=== PATIENT | female | born 1965 | race American Indian/Alaskan Native ===

== ENCOUNTER 2017-04-09 07:46 | Emergency (ER) | payer BC ==
[2017-04-09 07:46] VITALS: BMI 33.8
[2017-04-09 08:00] VITALS: RESP 18; TEMP 98.7
[2017-04-09] MEDS ORDERED: Sodium Chloride 0.9% 1,000 ML IV ONE (08:15)
[2017-04-09] MEDS ORDERED: Sodium Chloride 0.9% 1,000 ML ONE (08:33)
[2017-04-09 08:36] LABS: BASO % 0.5 % (0.0-2.0); EOS # 0.1 K/uL (0.0-0.7); EOS % 2.7 % (0.0-4.0); HEMOGLOBIN 12.3 g/dL (11.0-16.0); LYMPH # 2.4 K/uL (1.0-4.3); LYMPH % 45.5 % (20.0-40.0); MEAN CELL VOLUME 78.4 fL (81.0-99.0); MEAN CORPUSCULAR HEMOGLOBIN 25.6 pg (27.0-31.0); MEAN CORPUSCULAR HGB CONC 32.6 g/dL (33.0-37.0); MEAN PLATELET VOLUME 9.2 fL (7.2-11.7); MONO # 0.6 K/uL (0.0-0.8); MONO % 11.5 % (0.0-10.0); NEUT # 2.1 K/uL (1.8-7.0); NEUT % 39.8 % (50.0-75.0); NRBC % 0.1 % (0.0-2.0); RBC 4.79 Mil/uL (3.80-5.20); RED CELL DISTRIBUTION WIDTH 14.1 % (11.5-14.5); WHITE BLOOD COUNT 5.4 K/uL (4.8-10.8)
[2017-04-09 08:40] LABS: SQUAMOUS EPITHIAL < 1 /hpf (0-5); URINE BILIRUBIN NEGATIVE (NEGATIVE); URINE BLOOD 1+ (NEGATIVE); URINE CLARITY Clear (Clear); URINE COLOR Yellow (YELLOW); URINE GLUCOSE (UA) NORMAL (Normal); URINE LEUKOCYTE ESTERASE NEG Leu/uL (Negative); URINE NITRATE NEGATIVE (NEGATIVE); URINE PROTEIN NEGATIVE (NEGATIVE); URINE UROBILINOGEN NORMAL mg/dL (0.2-1.0)
[2017-04-09 08:50] LABS: ALB/GLOB RATIO 1.1 (1.0-2.1); ALBUMIN 4.2 g/dL (3.5-5.0); ALT/SGPT 18 U/L (9-52); AST/SGOT 26 U/L (14-36); BLOOD UREA NITROGEN 18 mg/dL (7-17); CALCIUM 8.7 mg/dl (8.6-10.4); GFR AFRICAN-AMERICAN > 60; GFR NON-AFRICAN AMERICAN > 60; LIPASE 64 U/L (23-300)
[2017-04-09] MEDS ORDERED: Iodixanol 320 MG/ML 100 ML BOTTLE IV ONE (09:39)
[2017-04-09 12:03] VITALS: PULSE 72; O2SAT 97
--- NOTE | 2017-04-09 12:04 | CT ---
CTA chest, abdomen, and pelvis with IV contrast Indication: Dyspnea Technique: Contiguous axial images of the chest, abdomen, and pelvis. Coronal and Sagittal reformats generated and reviewed. This CT exam was performed using 1 or more of the following dose reduction techniques: Automated exposure control, adjustment of the MAA and/or kV according to patient size, and/or use of iterative reconstruction technique. Oral contrast was administered. 100 cc Visipaque IV. Radiation dose: Total exam DLP = 1738.77 MGy-cm. Comparison: Chest x-ray performed 09/13/13. Findings: Visualized portions of the inferior thyroid gland appear heterogeneous with numerous hypodense right thyroid nodules. The mediastinal and hilar vascular structures appear within normal limits. The heart appears within normal limits of size. No large central or segmental pulmonary embolus evident. No focal consolidation. No pleural effusion. No pneumothorax. No suspicious pulmonary nodules measuring greater than 5 mm. The liver, spleen, kidneys, pancreas, adrenal glands, and gallbladder appear unremarkable. The stomach is nondistended. The bowel loops appear within normal limits of caliber without evidence of intestinal obstruction. The appendix is not identified. No secondary signs of acute appendicitis. There is no definite free air. Lobulated heterogeneous appearance of the uterus including calcifications likely related to fibroids. The urinary bladder appears unremarkable. Two fat containing ventral abdominal wall hernias. A 3rd more inferior bowel containing ventral hernia without evidence of obstruction. Degenerative changes. Impression: Visualized portions of the inferior thyroid gland appear heterogeneous with numerous hypodense right thyroid nodules. Thyroid ultrasound may be considered for further evaluation if indicated. No large central or segmental pulmonary embolus evident. Lobulated heterogeneous appearance of the uterus including calcifications likely related to fibroids. Two fat containing ventral abdominal wall hernias. A 3rd more inferior bowel containing ventral hernia without evidence of obstruction.
--- NOTE | 2017-04-09 12:12 | C.PDOC ---
History Of Present Illness 51 y/o female with Hx of colon cancer, bowel resection and HTN presents to ED presents to ED with complaints of right upper abdomen pain radiating to back for "couple of months". Patient states he was sent for xray that was negative but continued to have pain when taking deep breaths which prompted visit to ED today. No other complaints at this time. Time Seen by Provider: 04/09/17 07:47 Chief Complaint (Nursing): Abdominal Pain History Per: Patient History/Exam Limitations: no limitations Onset/Duration Of Symptoms: Days Current Symptoms Are (Timing): Still Present Location Of Pain/Discomfort: RUQ Radiation Of Pain To:: Back Past Medical History Reviewed: Historical Data, Nursing Documentation, Vital Signs Vital Signs: Last Vital Signs Temp 98.7 F 04/09/17 07:48 Pulse 72 04/09/17 12:02 Resp 18 04/09/17 12:02 BP 131/93 H 04/09/17 12:33 Pulse Ox 97 04/09/17 12:56 - Medical History PMH: Anemia, HTN (NO MEDS CURRENTLY) Surgical History: Appendectomy, Endoscopy - [facility] Procedures INSERTION OF TOTALLY IMPLANTABLE VASC ACCESS DEVIC (09/13/13) OPEN AND OTHER RIGHT HEMICOLECTOMY (07/16/13) Family History: States: No Known Family Hx - Social History Hx Alcohol Use: Yes Hx Substance Use: No - Immunization History Hx Tetanus Toxoid Vaccination: No Hx Influenza Vaccination: Yes Hx Pneumococcal Vaccination: No Review Of Systems Constitutional: Negative for: Fever, Chills Gastrointestinal: Positive for: Abdominal Pain. Negative for: Nausea, Vomiting , Diarrhea Musculoskeletal: Negative for: Back Pain Skin: Negative for: Rash Neurological: Negative for: Weakness, Numbness Physical Exam - Physical Exam Appears: Non-toxic, No Acute Distress Skin: Normal Color, Warm, Dry Head: Atraumatic, Normacephalic Oral Mucosa: Moist Neck: Normal ROM, Supple Cardiovascular: Rhythm Regular Respiratory: Normal Breath Sounds, No Rales, No Rhonchi, No Wheezing Gastrointestinal/Abdominal: Soft, Tenderness (Mild tenderness to RUQ), Other ( Right flank tenderness) Back: No CVA Tenderness Extremity: Normal ROM, Capillary Refill (<2 seconds) Neurological/Psych: Oriented x3 ED Course And Treatment - Laboratory Results Result Diagrams: 04/09/17 08:29 04/09/17 08:29 Lab Interpretation: Normal O2 Sat by Pulse Oximetry: 97 (RA) Pulse Ox Interpretation: Normal - CT Scan/US CTA Other Rad Studies (CT/US): Read By Radiologist, Radiology Report Reviewed CT/US Interpretation: CTA chest, abdomen, and pelvis with IV contrast. Indication: Dyspnea. Technique: Contiguous axial images of the chest, abdomen , and pelvis. Coronal and Sagittal reformats generated and reviewed. This CT exam was performed using 1 or more of the following dose reduction techniques: Automated exposure control, adjustment of the MAA and/or kV according to patient size, and/or use of iterative reconstruction technique. Oral contrast was administered. 100 cc Visipaque IV. Radiation dose: Total exam DLP = 1738.77 MGy-cm. Comparison: Chest x-ray performed 09/13/13. Findings: Visualized portions of the inferior thyroid gland appear heterogeneous with numerous hypodense right thyroid nodules. The mediastinal and hilar vascular structures appear within normal limits. The heart appears within normal limits of size. No large central or segmental pulmonary embolus evident. No focal consolidation. No pleural effusion. No pneumothorax. No suspicious pulmonary nodules measuring greater than 5 mm. The liver, spleen, kidneys, pancreas, adrenal glands, and gallbladder appear unremarkable. The stomach is nondistended. The bowel loops appear within normal limits of caliber without evidence of intestinal obstruction. The appendix is not identified. No secondary signs of acute appendicitis. There is no definite free air. Lobulated heterogeneous appearance of the uterus including calcifications likely related to fibroids. The urinary bladder appears unremarkable. Two fat containing ventral abdominal wall hernias. A 3rd more inferior bowel containing ventral hernia without evidence of obstruction. Degenerative changes. Impression: Visualized portions of the inferior thyroid gland appear heterogeneous with numerous hypodense right thyroid nodules. Thyroid ultrasound may be considered for further evaluation if indicated. No large central or segmental pulmonary embolus evident. Lobulated heterogeneous appearance of the uterus including calcifications likely related to fibroids. Two fat containing ventral abdominal wall hernias. A 3rd more inferior bowel containing ventral hernia without evidence of obstruction. Progress Note: Treated with IVF NSS and toradol IV. On re-evaluation lungs clear, abdomen soft non-tender. Discharged in stable condition. Advised to follow up with Dr Michel and PMD for further evaluation Reassessment Condition: Improved Medical Decision Making Medical Decision Making: Plan: CTA, Abdomen and pelvis US, Progress: Patient will be discharged with copies of test results and advised to follow up with surgeon. Disposition Counseled Patient/Family Regarding: Studies Performed, Diagnosis, Need For Followup, Rx Given - Disposition Referrals: Anurag Mesa MD [Staff Provider] - Disposition: HOME/ ROUTINE Disposition Time: 12:15 Condition: STABLE Additional Instructions: Return to ED if any increase symptoms Prescriptions: Naproxen [Naprosyn] 1 tab PO BID PRN #25 tab PRN Reason: Pain Instructions: Abdominal Pain (ED) Forms: [employer] (Jordanian) - POA Present On Arrival: None - Clinical Impression Clinical Impression: Abdominal pain - PA / PREPARER MAKING DEPARTMENT / Resident Statement MD/DO has reviewed & agrees with the documentation as recorded. - Scribe Statement The provider has reviewed the documentation as recorded by the Sirishaibirene Mccord All medical record entries made by the Albino were at my direction and personally dictated by me. I have reviewed the chart and agree that the record accurately reflects my personal performance of the history, physical exam, medical decision making, and the department course for this patient. I have also personally directed, reviewed, and agree with the discharge instructions and disposition.
[2017-04-09 12:35] VITALS: BP 131/93
== END 2017-04-09 12:40 | disposition home or self-care (01) ==
LOC: C.ER 07:46
DX: R10.9 Unspecified abdominal pain (principal); I10 Essential (primary) hypertension; Z85.038 Personal history of other malignant neoplasm of large intestine
CPT/HCPCS: 71270; 74175; 80053; 81001; 83690; 85025; 85378; 96361; 96374; 99285; J1885; J7040; Q9967